=== PATIENT | female | born 1945 ===

== ENCOUNTER 2016-12-28 12:08 | Observation (INO) | payer MEDICARE, MEDICAID ==
[2016-12-28 12:08] VITALS: BMI 23.8
[2016-12-28 12:31] VITALS: TEMP 97
--- NOTE | 2016-12-28 12:50 | ED PDOC ---
Lower Extremity Pain/Injury Time Seen by Provider: 12/28/16 12:31 Chief Complaint (Nursing): Lower Extremity Problem/Injury Chief Complaint (Provider): Lower Back Pain History Per: Patient, Family History/Exam Limitations: no limitations Onset/Duration Of Symptoms: Days (x2) Current Symptoms Are (Timing): Still Present Additional Complaint(s): 12:44 Glenis Drake is a 71 year old female with a history of arthritis and gastritis that presents to the ED with a chief complaint of pinching right sided lower back pain that radiates down her right leg that she has been experiencing over the last two days. Patient states that due to her arthritis, she typically experiences back pain, for which her PMD has given her a prescription of Neurontin for, but that this episode of pain has been greatly exacerbated and her medication has provided her with no relief. Patient denies any fever, hematuria, dysuria, and incontinence. PCP: Alanna Queen Past Medical History Reviewed: Historical Data, Nursing Documentation, Vital Signs Vital Signs: Last Vital Signs Temp 97.0 F L 12/28/16 12:29 Pulse 95 H 12/28/16 12:29 Resp 18 12/28/16 12:29 BP 166/88 H 12/28/16 12:29 Pulse Ox 99 12/28/16 12:29 - Medical History PMH: Anemia (IRON INFUSION EVERY MONTH), Arthritis, Gastritis, Gall Bladder Disease, HTN, Hypercholesterolemia, Pneumonia (MANY YEARS AGO) - Surgical History Surgical History: - Family History Family History: States: Unknown Family Hx - Home Medications Home Medications: Ambulatory Orders Medication Instructions Recorded Gabapentin [Neurontin] 600 mg PO HS 03/28/15 Losartan/Hydrochlorothiazide 1 tab PO DAILY 03/28/15 [Hyzaar 100-25 Tablet] Pantoprazole Sodium [Protonix] 40 mg PO HS 03/28/15 Rosuvastatin Calcium [Crestor] 10 mg PO DAILY 03/28/15 Multivitamin [Daily Sylvain] 1 tab PO DAILY 06/27/16 - Allergies Allergies/Adverse Reactions: Allergies Allergy/AdvReac Type Severity Reaction Status Date / Time sulfamethoxazole Allergy RASH Verified 07/03/16 08:23 [From Bactrim] trimethoprim [From Bactrim] Allergy RASH Verified 07/03/16 08:23 Review of Systems Constitutional: Negative for: Fever Genitourinary Female: Negative for: Dysuria, Incontinence, Hematuria Musculoskeletal: Positive for: Back Pain (right sided lower back pain), Leg Pain (right leg pain) Physical Exam - Reviewed Nursing Documentation Reviewed: Yes Vital Signs Reviewed: Yes - Physical Exam Appears: Positive for: Non-toxic, In Acute Distress (in minimal painful distress ) Head Exam: Positive for: ATRAUMATIC, NORMOCEPHALIC Skin: Positive for: Normal Color, Warm. Negative for: Rash Eye Exam: Positive for: Normal appearance Cardiovascular/Chest: Positive for: Regular Rate, Rhythm. Negative for: Murmur Respiratory: Positive for: Normal Breath Sounds. Negative for: Wheezing Gastrointestinal/Abdominal: Positive for: Soft. Negative for: Tenderness Back: Negative for: Normal Inspection (right sided paralumbar tenderness) Extremity: Positive for: Other (positive straight leg raise in right leg at approximately 45-50 degrees). Negative for: Calf Tenderness (no calf tenderness bilaterally) Neurologic/Psych: Positive for: Alert, Oriented - Laboratory Results Result Diagrams: 12/28/16 13:33 12/28/16 13:33 - ECG O2 Sat by Pulse Oximetry: 99 (RA) Pulse Ox Interpretation: Normal - Radiology X-Ray: Interpreted by Me (LS spine x-ray) X-Ray Interpretation: No Acute Disease - Progress Re-evaluation Time: 16:21 Condition: Re-examined, Improved Medical Decision Making Medical Decision Makin:49 Initial Impression: Sciatica Initial Plan: * CMP * CBC * Urine culture * Urinalysis * CT A/P w/o PO or IV contrast * X-Ray LS Spine * Flexeril 10 mg PO * Ultram 50 mg PO * Reevaluation Scribe Attestation: Documented by Sofia Jang, acting as a scribe for Paul Miller PA-C. Provider Scribe Attestation: All medical record entries made by the Scribe were at my direction and personally dictated by me. I have reviewed the chart and agree that the record accurately reflects my personal performance of the history, physical exam, medical decision making, and the department course for this patient. I have also personally directed, reviewed, and agree with the discharge instructions and disposition. ED OBSERVATION Discharge: Yes Date of observation admission: 12/28/16 Time of observation admission: 14:11 - Observation admission statement Patient is being placed in observation because:: back pain, hematuria - Progress Note Progress Note: 12/28/16 14:11 CT is under maintenance. Pt. and family informed. They will wait for CT. 12/28/16 15:[address] No distress. 12/28/16 16:31 CT abd/pelvis w/o contrast: Barely perceptible 2 mm calculus nonobstructing right kidney. Reports complete relief of pain. Informed of results and need for urology consult. Disposition - Clinical Impression Clinical Impression: Calculus of kidney - Patient ED Disposition Is Patient to be Admitted: No - Disposition Disposition: Routine/Home Disposition Time: 16:32 Condition: IMPROVED
[2016-12-28 13:44] LABS: BASO # 0.1 K/uL (0.0-0.2); BASO % 1.1 % (0.0-2.0); EOS # 0.2 K/uL (0.0-0.7); HEMATOCRIT 42.7 % (34.0-47.0); LYMPH # 1.5 K/uL (1.0-4.3); LYMPH % 25.1 % (20.0-40.0); MEAN CORPUSCULAR HEMOGLOBIN 30.3 pg (27.0-31.0); MEAN CORPUSCULAR HGB CONC 34.3 g/dL (33.0-37.0); MEAN PLATELET VOLUME 8.8 fl (7.2-11.7); MONO # 0.4 K/uL (0.0-0.8); MONO % 7.1 % (0.0-10.0); NEUT # 3.9 K/uL (1.8-7.0); NEUT % 63.7 % (50.0-75.0); NRBC % 0.2 % (0.0-0.0); WHITE BLOOD COUNT 6.1 K/uL (4.8-10.8)
[2016-12-28 13:46] LABS: MEAN CELL VOLUME 88.5 fl (81.0-99.0)
[2016-12-28 13:49] LABS: URINE BACTERIA RARE (<OCC); URINE BILIRUBIN NEGATIVE (NEGATIVE); URINE BLOOD MODERATE (NEGATIVE); URINE COLOR YELLOW (YELLOW); URINE GLUCOSE (UA) NEG (Normal); URINE KETONE NEGATIVE (NEGATIVE); URINE LEUKOCYTE ESTERASE NEG Leu/uL (Negative); URINE PROTEIN NEGATIVE (NEGATIVE); URINE UROBILINOGEN 0.2-1.0 mg/dL (0.2-1.0); WBC URINE < 1 /hpf (0-5)
[2016-12-28 14:01] LABS: ALB/GLOB RATIO 1.2 (1.0-2.1); ALKALINE PHOSPHATASE 65 U/L (38-126); ALT/SGPT 34 U/L (9-52); AST/SGOT 37 U/L (14-36); BILIRUBIN,TOTAL 0.7 mg/dl (0.2-1.3); BLOOD UREA NITROGEN 16 mg/dl (7-17); CALCIUM 9.6 mg/dL (8.4-10.2); CARBON DIOXIDE 29 mmol/L (22-30); CHLORIDE 102 mmol/L (98-107); GFR AFRICAN-AMERICAN > 60; GLUCOSE,RANDOM 104 mg/dL (65-105); POTASSIUM 4.2 MMOL/L (3.6-5.0); SODIUM 145 mmol/l (132-148)
--- NOTE | 2016-12-28 15:30 | RAD ---
PROCEDURE: Radiographs of the Lumbar Spine. HISTORY: Low back pain. No antecedent history of trauma provided. COMPARISON: No prior. FINDINGS: BONES: Normal alignment. No listhesis. No fracture. DISC SPACES: Unremarkable. OTHER FINDINGS: None. IMPRESSION: Unremarkable radiographs of the lumbar spine.
--- NOTE | 2016-12-28 16:11 | CT ---
PROCEDURE: CT Abdomen and Pelvis without intravenous contrast HISTORY: Right flank pain, hematuria. COMPARISON: 01/05/2014. TECHNIQUE: Unenhanced study. Neither oral nor intravenous contrast administered. Radiation dose: Total exam DLP = 453.51 mGy-cm. This CT exam was performed using one or more of the following dose reduction techniques: Automated exposure control, adjustment of the mA and/or kV according to patient size, and/or use of iterative reconstruction technique. FINDINGS: LOWER THORAX: Stable mass left breast 13 mm. LIVER: Unremarkable. No gross lesion or ductal dilatation. GALLBLADDER AND BILE DUCTS: Unremarkable. PANCREAS: Unremarkable. No gross lesion or ductal dilatation. SPLEEN: Unremarkable. ADRENALS: Unremarkable. No mass. KIDNEYS AND URETERS: Tiny, 2 mm nonobstructing lower pole calculus right kidney. No evidence of obstructive uropathy. Unremarkable ureters. VASCULATURE: Unremarkable. No aortic aneurysm. BOWEL: Unremarkable. No obstruction. No gross mural thickening. APPENDIX: Unremarkable. Normal appendix. PERITONEUM: Unremarkable. No free fluid. No free air. LYMPH NODES: Unremarkable. No enlarged lymph nodes. BLADDER: Unremarkable. REPRODUCTIVE: Unremarkable. BONES: No acute fracture. OTHER FINDINGS: None. IMPRESSION: Barely perceptible 2 mm calculus nonobstructing right kidney. Remainder the upper tracts within normal limits as are the ureters and urinary bladder.
[2016-12-28 16:45] VITALS: BP 155/71; PULSE 68; RESP 16; O2SAT 100
== END 2016-12-28 16:45 | disposition home or self-care (01) ==
LOC: H.ER 12:08 → H.EROBSV 14:12
PROVIDERS: ADMIT Emergency Medicine; ATTEND Emergency Medicine
DX: N20.0 Calculus of kidney (principal); I10 Essential (primary) hypertension; M19.90 Unspecified osteoarthritis, unspecified site
CPT/HCPCS: 72100; 74176; 80053; 81003; 85025; 87086; 99283; G0378

== ENCOUNTER 2017-05-09 12:21 | Emergency (ER) | payer MEDICARE, OTHER ==
[2017-05-09 12:31] VITALS: BMI 22.8
[2017-05-09 12:32] VITALS: BP 150/87; PULSE 95; RESP 18; TEMP 98.1; O2SAT 98
--- NOTE | 2017-05-09 13:30 | ED PDOC ---
Lower Extremity Pain/Injury Time Seen by Provider: 05/09/17 12:45 Chief Complaint (Nursing): Lower Extremity Problem/Injury Chief Complaint (Provider): left ankle swelling/itching History Per: Patient Onset/Duration Of Symptoms: Persistent (1 mo) Current Symptoms Are (Timing): Still Present Additional Complaint(s): Pt is 71 yo F with PMH varicose veins, benign thyroid nodules, arthritis, renal stones who presents today 05/09/17 to the ED due to 1mo hx of right medial ankle swelling that is accompanied by redness and itchiness, and 0.5cmx0.5cm shallow wound/ulcer over left medial malleolus. Pt denies pain to the area, as well as denies pain upon movement and/or walking. Pt saw PMD about 1 mo ago, states that PMD gave her 250mg Cipro for 10 days and hydrocortisone cream, which pt finished, but symptoms persisted. Pt thinks that the wound was caused by her scratching at the area. Call placed to pt's pharmacy by ED pharmacist- in february she received cipro 500 BID for 7 days. Denies hx diabetes. Denies fevers, chills, sore throat, changes in skin other than as in HPI, shortness of breath, chest pain, abdominal pain, nausea, vomiting, diarrhea, loss of sensation to extremities. Past Medical History Vital Signs: Last Vital Signs Temp 98.1 F 05/09/17 12:31 Pulse 95 H 05/09/17 12:31 Resp 18 05/09/17 12:31 BP 150/87 05/09/17 12:31 Pulse Ox 98 05/09/17 12:31 - Medical History PMH: Anemia (IRON INFUSION EVERY MONTH), Arthritis, Gastritis, Gall Bladder Disease, HTN, Hypercholesterolemia, Pneumonia (MANY YEARS AGO) - Surgical History Surgical History: Other surgeries: varicose vein surgery - Family History Family History: States: Unknown Family Hx - Social History Current smoker - smoking cessation education provided: No (never smoker) Alcohol: None Drugs: Denies - Immunization History Hx Tetanus Toxoid Vaccination: Yes Hx Influenza Vaccination: Yes (2015) Hx Pneumococcal Vaccination: Yes - Home Medications Home Medications: Ambulatory Orders Medication Instructions Recorded Gabapentin [Neurontin] 600 mg PO HS 03/28/15 Losartan/Hydrochlorothiazide 1 tab PO DAILY 03/28/15 [Hyzaar 100-25 Tablet] Clindamycin [Cleocin] 150 mg PO TID #15 cap 05/09/17 Linaclotide [Linzess] 145 mcg PO DAILY 05/09/17 Mupirocin 2% Ointment [Bactroban 22 applic EXT BID #1 tube 05/09/17 Ointment] Rosuvastatin Calcium [Crestor] 20 mg PO DAILY 05/09/17 - Allergies Allergies/Adverse Reactions: Allergies Allergy/AdvReac Type Severity Reaction Status Date / Time sulfamethoxazole Allergy RASH Verified 07/03/16 08:23 [From Bactrim] trimethoprim [From Bactrim] Allergy RASH Verified 07/03/16 08:23 Wells Criteria for PE - Wells Criteria for Pulmonary Embolism Clinical Signs and Symptoms of DVT: No P.E is #1 Diagnosis, or Equally Likely: No Heart Rate >100: No Immobilization at least 3 days;Surgery previous 4 weeks: No Previous, objectively diagnosed PE or DVT: No Hemoptysis: No Malignancy w/treatment within 6 months, or palliative: No Total Score: 0 Review of Systems ROS Statement: Except As Marked, All Systems Reviewed And Found Negative Musculoskeletal: Positive for: Other (itching at left ankle) Physical Exam - Physical Exam Appears: Positive for: Non-toxic, No Acute Distress Head Exam: Positive for: ATRAUMATIC, NORMAL INSPECTION Skin: Positive for: Warm, Dry Eye Exam: Positive for: EOMI, PERRL ENT: Negative for: Pharyngeal Erythema, Tonsillar Exudate Neck: Positive for: Normal, Painless ROM Cardiovascular/Chest: Positive for: Regular Rate, Rhythm. Negative for: Murmur Respiratory: Positive for: Normal Breath Sounds. Negative for: Wheezing, Respiratory Distress Gastrointestinal/Abdominal: Positive for: Normal Exam, Bowel Sounds, Soft. Negative for: Tenderness Back: Positive for: Normal Inspection Extremity: Positive for: Normal ROM, Swelling, Other (0.5cmx0.5cm shallow, non- draining wound/ulcer surrounded by erythematous swelling present at left medial ankle. ROM not affected. Area slightly warm, not tender or painful to palpation. varicose veins in lower extremities bilaterlly). Negative for: Tenderness, Calf Tenderness Neurologic/Psych: Positive for: Alert, Oriented - Laboratory Results Result Diagrams: 05/09/17 13:40 05/09/17 13:40 - ECG O2 Sat by Pulse Oximetry: 98 Medical Decision Making Medical Decision Making: Pt seen, evaluated, examined. Vital signs stable 13:30 CBC CMP Left ankle xray 14:04 CBC, CMP unremarkable 14:19 Ankle Xray: mild soft tissue swelling overlying medial malleolus which could represent cellulitis. no definitive cortical destructive changes. no gas in soft tissues. Pt to be d/c with prescriptions for clindamycin for 3 days and bactroban ointment, recommend wound care appt and f/u with PMD. Disposition - Clinical Impression Clinical Impression: Cellulitis of ankle - Patient ED Disposition Is Patient to be Admitted: No - Disposition Referrals: [facility] [Outside] Disposition Time: 14:49 Condition: STABLE Additional Instructions: See wound care center next week for repeat evaluation and further treatment. Prescriptions: Clindamycin [Cleocin] 150 mg PO TID #15 cap Mupirocin 2% Ointment [Bactroban Ointment] 22 applic EXT BID #1 tube Instructions: Cellulitis (ED), Acute Wound Care (ED) Forms: [employer] ([place])
[2017-05-09 13:51] LABS: BASO # 0.1 K/uL (0.0-0.2); BASO % 0.9 % (0.0-2.0); EOS # 0.1 K/uL (0.0-0.7); LYMPH # 1.4 K/uL (1.0-4.3); LYMPH % 22.7 % (20.0-40.0); MEAN CELL VOLUME 88.2 fl (81.0-99.0); MEAN CORPUSCULAR HEMOGLOBIN 29.6 pg (27.0-31.0); MEAN CORPUSCULAR HGB CONC 33.5 g/dL (33.0-37.0); MEAN PLATELET VOLUME 7.9 fl (7.2-11.7); MONO # 0.6 K/uL (0.0-0.8); MONO % 8.9 % (0.0-10.0); NEUT # 4.2 K/uL (1.8-7.0); NEUT % 65.5 % (50.0-75.0); NRBC % 0.1 % (0.0-0.0); RED CELL DISTRIBUTION WIDTH 13.5 % (11.5-14.5); WHITE BLOOD COUNT 6.3 K/uL (4.8-10.8)
[2017-05-09 14:00] LABS: ALB/GLOB RATIO 1.5 (1.0-2.1); ALKALINE PHOSPHATASE 62 U/L (38-126); ALT/SGPT 32 U/L (9-52); AST/SGOT 29 U/L (14-36); BILIRUBIN,TOTAL 0.5 mg/dl (0.2-1.3); BLOOD UREA NITROGEN 11 mg/dl (7-17); CALCIUM 9.9 mg/dL (8.4-10.2); CARBON DIOXIDE 29 mmol/L (22-30); CHLORIDE 105 mmol/L (98-107); GFR AFRICAN-AMERICAN > 60; GLUCOSE,RANDOM 98 mg/dL (65-105); POTASSIUM 3.9 MMOL/L (3.6-5.0); SODIUM 143 mmol/l (132-148); TOTAL PROTEIN 7.3 G/DL (6.3-8.2)
--- NOTE | 2017-05-09 14:17 | RAD ---
PROCEDURE: Left ankle dated 05/09/2017 HISTORY: Wound. Swelling. COMPARISON: None FINDINGS: BONES: The current study reveals a diagonal/oblique lucency overlying the distal left fibula which could represent trabecular artifact. Old non fused fracture cannot be completely excluded though this is less likely. Ankle mortise maintained. There is mild soft tissue swelling overlying the medial malleolus nonspecific. Rule out cellulitis versus posttraumatic swelling. No gas seen within the soft tissues. No obvious cortical destructive changes. Mild degenerative arthritis tibiotalar articulation Soft tissue calcifications noted which may be vascular in origin. . No gas seen in the soft tissues Prominent posterior and smaller plantar calcaneal enthesophyte formation. Impression: Mild soft tissue swelling overlying the medial malleolus which could represent cellulitis. No definitive cortical destructive changes. Consider followup MRI for further evaluation. A linear lucency traversing the distal fibula probably representing trabecular type artifact. Possibility of an old unfused fracture deformity not excluded.
== END 2017-05-09 14:49 | disposition home or self-care (01) ==
LOC: H.ER 12:21
DX: L03.116 Cellulitis of left lower limb (principal); I10 Essential (primary) hypertension